=== PATIENT | male | born 1975 | race African-American/Black ===

== ENCOUNTER 2017-01-20 16:45 | Emergency (ER) | payer MEDICAID ==
[~2017-01-20] VITALS: Ht 177.8 cm; Wt 98.0 kg
[2017-01-20] MEDS ORDERED: CARB200T PO (16:55)
[2017-01-20 19:22] LABS: CARBAMAZEPINE 3.9 ug/mL (4-12); PHENOBARBITAL 8.2 ug/mL (15.0-40.0)
[2017-01-20] MEDS ORDERED: CARBAMAZEPINE 100MG TABLET CHEW PO ONE (20:30)
[2017-01-20] MEDS ORDERED: PHENOBARBITAL 60MG TABLET PO ONE (20:30)
[2017-01-20 21:07] VITALS: BP 118/63
== END 2017-01-20 21:08 | disposition home or self-care (01) ==
LOC: ER 17:13
DX: G40.909 Epilepsy, unspecified, not intractable, without status epilepticus (principal); Z71.89 Other specified counseling
CPT/HCPCS: 36415; 80156; 80184; 82962; 93005; 99285

== ENCOUNTER 2017-06-12 15:21 | Emergency (ER) | payer MEDICAID ==
[~2017-06-12] VITALS: Ht 177.8 cm; Wt 90.0 kg
[~2017-06-12 15:21] MED LIST: CARB200T PO
[2017-06-12] MEDS ORDERED: SODIUM CHLORIDE 0.9% 1,000 ML IV ONE (16:51)
[2017-06-12 18:03] LABS: BASOPHILS % 0.6 % (0.0-2.0); EOSINOPHILS % 0.9 % (0.0-5.0); HEMATOCRIT. 43.8 % (42.0-52.0); HEMOGLOBIN. 14.8 g/dL (14.0-18.0); LYMPHOCYTES % 11.5 % (20.0-50.0); MEAN CORPUSCULAR HEMOGLOBIN 30.5 pg (28.0-32.0); MEAN CORPUSCULAR VOLUME 90.2 fL (80.0-94.0); MEAN PLATELET VOLUME 7.3 fl (7.4-10.4); MONOCYTES % 8.4 % (2.0-8.0); NEUTROPHILS % 78.6 % (40.0-76.0); PLATELET 243 x1000/uL (130-400); RED BLOOD CELL COUNT 4.86 mill/uL (4.7-6.1); RED CELL DISTRIBUTION WIDTH 14.5 % (11.6-14.6)
[2017-06-12 18:14] LABS: CHLORIDE 106 mEq/L (98-107)
[2017-06-12 18:19] LABS: ETHANOL BLOOD < 10 mg/dL
[2017-06-12 18:27] LABS: CARBAMAZEPINE 3.8 ug/mL (4-12); CREATINE KINASE 195 IU/L (39-308); PHENOBARBITAL 12.7 ug/mL (15.0-40.0)
[2017-06-12 18:30] LABS: VALPROIC ACID < 3.0 ug/mL (50-100)
[2017-06-12 19:11] LABS: CLARITY URINE CLEAR (CLEAR); COLOR URINE YELLOW (YELLOW); KETONES URINE TRACE (NEGATIVE); LEUKOCYTE ESTERASE URINE NEGATIVE (NEGATIVE); NITRITE URINE NEGATIVE (NEGATIVE); OCCULT BLOOD URINE NEGATIVE (NEGATIVE); PH URINE 5.5 (4.5-8.0); PROTEIN URINE TRACE (NEGATIVE); SPECIFIC GRAVITY URINE 1.028 (1.005-1.030)
[2017-06-12] MEDS ORDERED: CARBAMAZEPINE 100MG TABLET CHEW PO ONE (19:45)
[2017-06-12] MEDS ORDERED: PHENOBARBITAL 60MG TABLET PO ONE (19:45)
[2017-06-12 19:48] LABS: *AMPHETAMINES SCREEN URINE NEGATIVE (NEGATIVE); *BARBITURATES SCREEN URINE PRESUMTIVE POSITIVE (NEGATIVE); *BENZODIAZEPINES SCREEN URINE NEGATIVE (NEGATIVE); *COCAINE SCREEN URINE NEGATIVE (NEGATIVE); CANNABINOID URINE SCREEN NEGATIVE (NEGATIVE); METHADONE URINE SCREEN NEGATIVE (NEGATIVE); OPIATES URINE SCREEN NEGATIVE (NEGATIVE); PHENCYCLIDINE URINE SCREEN NEGATIVE (NEGATIVE)
[2017-06-12 20:40] VITALS: BP 120/76
== END 2017-06-12 21:29 | disposition home or self-care (01) ==
LOC: ER 15:33
DX: G40.909 Epilepsy, unspecified, not intractable, without status epilepticus (principal); F10.20 Alcohol dependence, uncomplicated
CPT/HCPCS: 36415; 80053; 80156; 80165; 80184; 80185; 80305; 81001; 82550; 82962; 84443; 85025; 96360; 96361; 99285; G0482; J7030; Z7610